=== PATIENT | female | born 1990 | race Caucasian/White ===

== ENCOUNTER 2016-10-12 23:19 | Emergency (ER) | payer OTHER ==
[~2016-10-12 23:19] MED LIST: AFRIN NASAL SPR15 ML; AMOXICILLIN500 M1 PO; BACTRIM DS TABL1 TA1 PO; BACTRIM DS TABL1 TAB PO; BENADRYL25 MG PO; CIPRO250 M1 PO; DELTASONE20 MG; FIORICET1 TAB PO; FLAGYL250 M1 PO; IBUPROFEN800 MG PO; KEFLEX500 MG PO; MACROBID100 MG PO; MOTRIN600 MG PO; NO MEDICATIONS; PREDNISONE50 MG PO; PRENATAL VITAMI1 TA5 PO; PRENATAL1 TA1 PO; PYRIDIUM PO; PYRIDIUM100 MG PO; SUDAFED30 M1 PO; TYLENOL #3 PO; VOLTAREN50 MG PO; ZOFRAN ODT4 MG PO
== END 2016-10-13 00:17 | disposition home or self-care (01) ==
LOC: SED 23:19
DX: J02.0 Streptococcal pharyngitis (principal); F17.210 Nicotine dependence, cigarettes, uncomplicated
CPT/HCPCS: 87880; 99283

== ENCOUNTER 2016-10-16 07:46 | Emergency (ER) | payer OTHER ==
--- NOTE | ~2016-10-16 | CR63 ---
[facility] A Service [facility] RADIOLOGY TEXT RESULTS PATIENT: JESSICA DEVINE LOCATION: SED : 88 UNIT #: [id number] AGE: [address]: Miriam Gautam MD SEX: F ORDER DR: [id number] [place] [id number] E MR#: [id number] Acc #: [id number] NAME: JESSICA DEVINE : 1990 SEX: F STUDY DATE/TIME: 10/16/2016 8:09 UNIT: SED ROOM: STUDY DESCRIPTION: CR Chest 2 View Attending Physician: Miriam Gautam M.D. Ordering Physician: Miriam Gautam M.D. Primary Care Physician: Primary Care Physician No MEDICAL IMAGING REPORT This report is preliminary unless electronic signature is present. EXAM Chest x-ray 10/16 INDICTION Cough for 1.5 weeks with hemoptysis. FINDINGS PA and lateral examination of the chest upright shows a good expansion of the parenchyma with a normal distribution of the pulmonary vascularity. There is no indication of congestion, effusion, infiltrate, tumor, or nodular density. The pleural reflections and diaphragmatic contours are normal. The cardiac silhouette and mediastinal anatomy is within normal limits. IMPRESSION Normal chest. Dictated by... Guy Garrison Jr., M.D. THIS IS AN ELECTRONICALLY VERIFIED REPORT Guy Garrison Jr., M.D. at 10/16/2016 12:40 PM RLK/teri TD: 10/16/2016 10:20 JOB #: [id number] MEDICAL IMAGING REPORT [facility] A Service [facility] RADIOLOGY TEXT RESULTS PATIENT: JESSICA DEVINE LOCATION: SED : [birth year] UNIT #: [id number] AGE: [address]: Miriam Gautam MD SEX: F ORDER DR: Page 1 of 1
[2016-10-16] MEDS ORDERED: AMOXICILLIN (07:50)
== END 2016-10-16 09:00 | disposition home or self-care (01) ==
LOC: SED 07:46
DX: J20.9 Acute bronchitis, unspecified (principal); F17.210 Nicotine dependence, cigarettes, uncomplicated; Z98.51 Tubal ligation status
CPT/HCPCS: 71020; 99283

== ENCOUNTER 2016-12-08 23:34 | Emergency (ER) | payer OTHER ==
[~2016-12-08] VITALS: Ht 160 cm; Wt 72.6 kg
[~2016-12-08 23:34] MED LIST changes: +AMOXICILLIN
[2016-12-08] MEDS ORDERED: TOPAMAX PO (23:49)
== END 2016-12-09 00:44 | disposition home or self-care (01) ==
LOC: SED 23:34
DX: J02.9 Acute pharyngitis, unspecified (principal); G43.909 Migraine, unspecified, not intractable, without status migrainosus; F17.200 Nicotine dependence, unspecified, uncomplicated
CPT/HCPCS: 87651; 99283

== ENCOUNTER 2017-01-26 00:53 | Emergency (ER) | payer OTHER ==
[~2017-01-26] VITALS: Ht 160 cm; Wt 72.6 kg
[~2017-01-26 00:53] MED LIST changes: +TOPAMAX PO
[2017-01-26 01:16] LABS: URINE SOURCE CLEAN CATCH
[2017-01-26 01:19] LABS: URINE APPEARANCE HAZY; URINE BILIRUBIN NEG (NEG); URINE BLOOD 3+ (NEG); URINE COLOR YELLOW; URINE GLUCOSE NEG (NORM); URINE KETONE TRACE (NEG); URINE LEUKOCYTE ESTERASE 2+ (NEG); URINE NITRATE NEG (NEG); URINE PH 5.5 (5-8); URINE PROTEIN NEG (NEG); URINE SPECIFIC GRAVITY >=1.030 (1.003-1.035)
[2017-01-26 01:21] LABS: MICRO INDICATED? YES
[2017-01-26 01:28] LABS: CULTURE INDICATED? YES; URINE BACTERIA 1+ (NEG); URINE MUCUS PRESENT; URINE SQUAMOUS EPITHELIAL CELL MANY /[HPF]; URINE WBC 25-50 /[HPF] (0-5)
== END 2017-01-26 01:49 | disposition home or self-care (01) ==
LOC: SED 00:53
PROVIDERS: Student in an Organized Health Care Education/Training Program
DX: N39.0 Urinary tract infection, site not specified (principal); G43.909 Migraine, unspecified, not intractable, without status migrainosus; Z91.09 Other allergy status, other than to drugs and biological substances; Z79.899 Other long term (current) drug therapy
CPT/HCPCS: 81003; 84703; 87086; 99283